=== PATIENT | female | born 1960 | race Two or more races ===

== ENCOUNTER 2018-04-14 14:23 | Outpatient (CLI) | payer OTHER | END 2018-04-14 14:35 | disposition home or self-care (01) | LOC: RAD 501 14:23 | DX: M79.641 Pain in right hand (principal); M79.642 Pain in left hand ==

== ENCOUNTER → 2018-04-27 | Outpatient (CLI) | payer OTHER | END | disposition home or self-care (01) | LOC: NUCLEAR 11:00 | DX: M81.0 Age-related osteoporosis without current pathological fracture (principal) ==

== ENCOUNTER 2018-09-15 15:38 | Outpatient (CLI) | payer OTHER | END 2018-09-15 15:50 | disposition home or self-care (01) | LOC: LAB 15:38 | DX: K61.0 Anal abscess (principal) ==

== ENCOUNTER → 2018-09-16 09:19 | Outpatient (CLI) | payer OTHER | END | disposition home or self-care (01) | LOC: LAB 09:19 | DX: E03.8 Other specified hypothyroidism (principal); M81.0 Age-related osteoporosis without current pathological fracture; K92.1 Melena; Z12.11 Encounter for screening for malignant neoplasm of colon; N30.90 Cystitis, unspecified without hematuria; E78.00 Pure hypercholesterolemia, unspecified; E55.9 Vitamin D deficiency, unspecified; M85.9 Disorder of bone density and structure, unspecified; E88.89 Other specified metabolic disorders; E56.1 Deficiency of vitamin K ==

== ENCOUNTER 2018-09-16 10:02 | Outpatient (CLI) | payer OTHER | END 2018-09-16 10:08 | disposition home or self-care (01) | LOC: MRI 10:02 | DX: N64.4 Mastodynia (principal); N60.11 Diffuse cystic mastopathy of right breast; Z12.31 Encounter for screening mammogram for malignant neoplasm of breast; N63.10 Unspecified lump in the right breast, unspecified quadrant; N63.20 Unspecified lump in the left breast, unspecified quadrant | CPT/HCPCS: 72197 ==

== ENCOUNTER 2018-09-28 17:47 | Outpatient (CLI) | payer OTHER | END 2018-09-28 18:17 | disposition home or self-care (01) | LOC: LAB 17:47 | DX: M81.0 Age-related osteoporosis without current pathological fracture (principal); K92.1 Melena; Z12.11 Encounter for screening for malignant neoplasm of colon; E03.8 Other specified hypothyroidism; D63.8 Anemia in other chronic diseases classified elsewhere; N30.90 Cystitis, unspecified without hematuria; E78.00 Pure hypercholesterolemia, unspecified ==

== ENCOUNTER 2019-05-12 14:04 | Outpatient (CLI) | payer OTHER | END 2019-05-12 14:15 | disposition home or self-care (01) | LOC: RAD 14:04 | DX: M25.231 Flail joint, right wrist (principal) ==

== ENCOUNTER 2022-08-22 10:52 | Outpatient (CLI) | payer OTHER | END 2022-08-22 10:58 | disposition home or self-care (01) | LOC: RAD 10:52 | PROVIDERS: ATTEND Orthopaedic Surgery | DX: M25.531 Pain in right wrist (principal) ==

== ENCOUNTER 2022-08-22 13:00 | Outpatient (CLI) | payer OTHER | END 2022-08-22 13:02 | disposition home or self-care (01) | LOC: LAB 13:00 | PROVIDERS: ATTEND Orthopaedic Surgery | DX: M85.9 Disorder of bone density and structure, unspecified (principal); E83.42 Hypomagnesemia; E56.1 Deficiency of vitamin K ==

== ENCOUNTER 2022-09-10 14:33 | Outpatient (CLI) | payer OTHER | END 2022-09-10 14:38 | disposition home or self-care (01) | LOC: NUCLEAR 14:33 | PROVIDERS: ATTEND Orthopaedic Surgery | DX: M81.0 Age-related osteoporosis without current pathological fracture (principal); M85.9 Disorder of bone density and structure, unspecified ==

== ENCOUNTER 2024-02-17 14:18 | Outpatient (CLI) | payer OTHER | END 2024-02-17 14:24 | disposition home or self-care (01) | LOC: RAD 14:18 | PROVIDERS: ATTEND Orthopaedic Surgery | DX: M25.562 Pain in left knee (principal) ==